=== PATIENT | female | born 1955 | race Caucasian/White ===

== ENCOUNTER 2021-08-15 20:19 | Emergency (ER) | payer BC, OTHER ==
[2021-08-15] MEDS ORDERED: Sodium Chloride 0.9% 1,000 ML IV ONE (21:03)
[2021-08-15 21:23] LABS: ANION GAP 13.5 mEq/L (7-13); CHLORIDE,CL 100 mmol/L (98-107); ESTIMATED GFR 37 mL/min (>=60); SODIUM,NA 139 mmol/L (136-145)
== END 2021-08-15 23:07 ==
LOC: DL.ED 20:19
DX: G45.9 Transient cerebral ischemic attack, unspecified (principal); J44.9 Chronic obstructive pulmonary disease, unspecified; I11.0 Hypertensive heart disease with heart failure; I50.9 Heart failure, unspecified; F17.210 Nicotine dependence, cigarettes, uncomplicated; Z88.2 Allergy status to sulfonamides
CPT/HCPCS: 36415; 70450; 80053; 80307; 81003; 82947; 83880; 84484; 85025; 85610; 87040; 93005; 99285; J7030; 93010; 99283